=== PATIENT | male | born 1990 | race Caucasian/White ===

== ENCOUNTER 2024-08-05 08:57 | Outpatient (CLI) | payer SELFPAY ==
--- NOTE | 2024-08-05 09:27 | US_ITS ---
FINAL REPORT TECHNIQUE: Limited sonographic images were obtained of the soft tissues in the abdomen at the area of interest. CLINICAL HISTORY: ABD MASS COMPARISON: None FINDINGS: There is a dominant solid mass along the left hip within the region of interest that measures 4.3 x 4.6 x 1.6 cm. This is favored to be a lipoma. However, if the lesion has clinical characteristics not typical for lipoma, MR correlation is recommended to assess for other causes of mass, including a soft tissue mass. No fluid collection is identified. IMPRESSION Superficial mass along the lateral left hip, probably lipoma. MR could more definitively confirm. Reviewed, Interpreted and Dictated by Akhil Jack MD Transcribed by Kiarra Bustamante Authenticated and [facility]
== END 2024-08-05 23:59 | disposition home or self-care (01) ==
PROVIDERS: PCP Physician Assistant; Visit Provider Physician Assistant
DX: R19.04 Left lower quadrant abdominal swelling, mass and lump (principal)
CPT/HCPCS: 76705